=== PATIENT | male | born 1975 | race Caucasian/White ===

== ENCOUNTER 2018-07-11 22:39 | Emergency (ER) | payer SELFPAY ==
[~2018-07-11] VITALS: Ht 165.1 cm; Wt 91.2 kg
[2018-07-11 22:44] VITALS: Ht 165.1 cm; Wt 91.2 kg
[2018-07-11 23:27] VITALS: BP 144/93
== END 2018-07-11 23:27 | disposition home or self-care (01) ==
LOC: ED 22:39
DX: H10.33 Unspecified acute conjunctivitis, bilateral (principal)